=== PATIENT | male | born 1965 | race Caucasian/White ===

== ENCOUNTER 2023-07-15 08:31 | Outpatient (CLI) | payer OTHER, SELFPAY | END 2023-07-15 08:32 | disposition home or self-care (01) | PROVIDERS: PCP Family Medicine; Visit Provider Family Medicine | DX: Z00.00 Encounter for general adult medical examination without abnormal findings (principal); Z13.1 Encounter for screening for diabetes mellitus; Z12.5 Encounter for screening for malignant neoplasm of prostate | CPT/HCPCS: 80048; 84153 ==

== ENCOUNTER 2024-07-14 08:00 | Outpatient (CLI) | payer OTHER, SELFPAY | END 2024-07-14 08:01 | disposition home or self-care (01) | LOC: NFLDREF 07-18 16:06 | PROVIDERS: PCP Family Medicine; Referring Provider Family Medicine; Visit Provider Family Medicine | DX: Z12.5 Encounter for screening for malignant neoplasm of prostate (principal); Z13.220 Encounter for screening for lipoid disorders; Z13.1 Encounter for screening for diabetes mellitus | CPT/HCPCS: 80061; 82947; G0103 ==

== ENCOUNTER 2025-07-31 07:50 | Outpatient (CLI) | payer OTHER, SELFPAY | END 2025-07-31 07:51 | disposition home or self-care (01) | LOC: NFLDREF 08-03 07:48 | PROVIDERS: PCP Family Medicine; Referring Provider Family Medicine; Visit Provider Family Medicine | DX: D64.9 Anemia, unspecified (principal); E78.5 Hyperlipidemia, unspecified | CPT/HCPCS: 80053; 80061; 82728 ==